=== PATIENT | female | born 1945 | race Caucasian/White ===

== ENCOUNTER 2020-04-01 11:56 | Inpatient (IN) | payer OTHER ==
[2020-04-01 13:35] LABS: INR 1.14 (0.9-1.2); PROTHROMBIN TIME 13.9 SECONDS (11.4-13.6); PTT 28.6 SECONDS (22.2-34.7)
[2020-04-01 13:38] LABS: ALBUMIN 2.6 g/dL (3.4-5.0); BILIRUBIN - TOTAL 0.3 mg/dL (0.2-1.0); BUN/CREAT RATIO (CALC) 22.6 RATIO; C-REACTIVE PROTEIN 3.9 mg/dL (<=0.90); CREATININE 1.06 mg/dL (0.51-0.95); GLOBULIN (CALCULATION) 3.9 g/dL; MAGNESIUM 2.4 mg/dL (1.8-2.4); POTASSIUM 3.8 mmol/L (3.5-5.1); TOTAL PROTEIN 6.5 g/dL (6.4-8.2)
[2020-04-01 13:40] LABS: BASOPHIL 0.5 % (0-2); EOSINOPHIL 0 % (0-7); HCT 37.3 % (37.0-47.0); HGB 12.1 g/dl (12.5-16.0); LYMPHOCYTE 27.7 % (15-48); MCH 30.6 pg (25.0-31.0); MCHC 32.4 g/dL (32.0-36.0); MCV 94.4 fL (78.0-100.0); MONOCYTE 12.3 % (0-12); MPV 10.8 fL (6.0-9.5); NEUTROPHIL 58.4 % (41-80); NRBC 0; RBC 3.95 M/uL (4.20-5.40); RDW 14.1 % (11.5-14.0); WBC 3.8 K/uL (4.0-10.5)
[2020-04-01 13:41] LABS: IRON % SATURATION 11.7 %SAT (20-50)
[2020-04-01 13:49] LABS: PRO-BNP 571 pg/mL (<125)
[2020-04-01 13:56] LABS: PLT 87 K/uL (150-400)
[2020-04-01 13:58] LABS: LACTIC ACID 1.2 mmol/L (0.4-1.9)
[2020-04-01 14:41] LABS: BILIRUBIN NEGATIVE (NEGATIVE); BLOOD TRACE-INTACT Ery/uL (NEGATIVE); CLARITY HAZY (CLEAR); COLOR YELLOW (YELLOW); GLUCOSE (U) NORMAL (NORMAL); LEUKOCYTES TRACE Leu/uL (NEGATIVE); NITRITE POSITIVE (NEGATIVE); PROTEIN TRACE (LOW) mg/dL (NEGATIVE); SPECIFIC GRAVITY 1.025 (1.001-1.030)
[2020-04-01 14:49] LABS: BACTERIA 4+; URINARY RBC RARE
[2020-04-02] MEDS ORDERED: DEPAKOTE250 MG PO ×2 (00:08→00:09)
[2020-04-02] MEDS ORDERED: ZOLOFT50 MG PO (00:09)
[2020-04-02] MEDS ORDERED: SEROQUEL 25MG T25 MG PO (00:10)
[2020-04-02] MEDS ORDERED: ASPIRIN81 MG PO (00:11)
[2020-04-02] MEDS ORDERED: FOSAMAX70 MG PO (00:11)
[2020-04-02] MEDS ORDERED: ARICEPT 5MG TABL5 MG PO (00:12)
[2020-04-02] MEDS ORDERED: LASIX20 MG PO (00:14)
[2020-04-02] MEDS ORDERED: PEPCID AC20 MG PO (00:14)
[2020-04-02] MEDS ORDERED: PRINIVIL20 MG PO (00:15)
[2020-04-02] MEDS ORDERED: NAMENDA 10MG TA10 MG PO (00:15)
[2020-04-02] MEDS ORDERED: PRAVACHOL20 MG PO (00:15)
[2020-04-02] MEDS ORDERED: SODIUM CHLORIDE1 GM PO (00:16)
[2020-04-02 06:12] LABS: BASOPHIL 0.3 % (0-2); EOSINOPHIL 0 % (0-7); HCT 34.4 % (37.0-47.0); HGB 11.2 g/dl (12.5-16.0); MCH 30.6 pg (25.0-31.0); MCHC 32.6 g/dL (32.0-36.0); MONOCYTE 3.7 % (0-12); MPV 10.7 fL (6.0-9.5); NRBC 0; PLT 87 K/uL (150-400); RBC 3.66 M/uL (4.20-5.40); WBC 3.6 K/uL (4.0-10.5)
[2020-04-02 06:22] LABS: LYMPHOCYTE 16.6 % (15-48)
[2020-04-02 07:59] LABS: CREATININE 0.93 mg/dL (0.51-0.95); MAGNESIUM 2.4 mg/dL (1.8-2.4); PHOSPHORUS 3.3 mg/dL (2.6-4.7); POTASSIUM 3.8 mmol/L (3.5-5.1)
[2020-04-02 08:29] LABS: C-REACTIVE PROTEIN 6.5 mg/dL (<=0.90)
--- NOTE | 2020-04-02 09:46 | NUR ---
HR IN 30'S-MD NOTIFIED. DR ARROYO CONSULTED. EKG ORDERED
--- NOTE | 2020-04-02 10:11 | NUR ---
CARDIOLOGY IN TO SEE PATIENT. PT BEING TRANSFERRED TO TCU BED 8. FAMILY NOTIFIED
[2020-04-02 17:26] LABS: BILIRUBIN NEGATIVE (NEGATIVE); BLOOD 1+ Ery/uL (NEGATIVE); CLARITY CLEAR (CLEAR); COLOR YELLOW (YELLOW); GLUCOSE (U) NORMAL (NORMAL); LEUKOCYTES 1+ Leu/uL (NEGATIVE); NITRITE POSITIVE (NEGATIVE); PROTEIN TRACE (LOW) mg/dL (NEGATIVE); SPECIFIC GRAVITY 1.025 (1.001-1.030)
[2020-04-02 17:37] LABS: URINARY WBC TNTC
[2020-04-02 17:38] LABS: BACTERIA 2+
[2020-04-03 05:00] LABS: BASOPHIL 0 % (0-2); EOSINOPHIL 0 % (0-7); HCT 39.2 % (37.0-47.0); HGB 13.1 g/dl (12.5-16.0); LYMPHOCYTE 12.4 % (15-48); MCH 30.3 pg (25.0-31.0); MCHC 33.4 g/dL (32.0-36.0); MCV 90.7 fL (78.0-100.0); MPV 10.4 fL (6.0-9.5); NEUTROPHIL 81.4 % (41-80); NRBC 0; RBC 4.32 M/uL (4.20-5.40); RDW 13.3 % (11.5-14.0)
[2020-04-03 05:02] LABS: PLT 110 K/uL (150-400); WBC 5.8 K/uL (4.0-10.5)
[2020-04-03 05:12] LABS: BUN/CREAT RATIO (CALC) 34.1 RATIO; CREATININE 0.88 mg/dL (0.51-0.95); MAGNESIUM 2.4 mg/dL (1.8-2.4); PHOSPHORUS 2.9 mg/dL (2.6-4.7); POTASSIUM 3.3 mmol/L (3.5-5.1)
--- NOTE | 2020-04-03 13:30 | NUR ---
04/03 Ms. Muir was admitted from Assisted [facility]. Tamara, [facility], reports plans to accept back. Tamara reports pt to have been independent with mobility and ADLs. She is followed by [facility].
--- NOTE | 2020-04-04 18:05 | NUR ---
04/04 Dr. Warner reports patient to [facility] for discharge to [facility]. PT recommended a rw and HH. Referrals were made to [facility] for a rw and VNA, per daughter, Ned Matthews, choice; affliations explained. - [facility] reports to be unable to transport patient. [facility] will not transport pts positve with COVID. [facility] reports to be out of the service area for patients traveling within [facility]. - Ned Matthews, daughter, , states she cannot be exposed to COVID and therefore will not transport. Dr. Warner reports patient is not safe to travel alone in a cab due to COVID. - A message has been left for Eric Bearden, , Executuve Officer at [facility].
[2020-04-05 06:13] LABS: BASOPHIL 0.9 % (0-2); EOSINOPHIL 0 % (0-7); HCT 35.7 % (37.0-47.0); HGB 11.7 g/dl (12.5-16.0); LYMPHOCYTE 28.2 % (15-48); MCH 30.5 pg (25.0-31.0); MCHC 32.8 g/dL (32.0-36.0); MONOCYTE 9.1 % (0-12); NEUTROPHIL 60.3 % (41-80); NRBC 0; RBC 3.84 M/uL (4.20-5.40); RDW 13.9 % (11.5-14.0); WBC 5.8 K/uL (4.0-10.5)
[2020-04-05 06:26] LABS: BUN/CREAT RATIO (CALC) 32.1 RATIO; CREATININE 0.78 mg/dL (0.51-0.95); MAGNESIUM 2.2 mg/dL (1.8-2.4)
[2020-04-05 06:38] LABS: PLT 143 K/uL (150-400)
[2020-04-05] MEDS ORDERED: DEXAMETHASONE 2M2 MG PO (10:30)
== END 2020-04-05 11:05 | disposition home health service (06) | DRG 871 ==
LOC: FER 11:56 → FMS 15:40 → FTCU 04-02 10:07
PROVIDERS: Emergency Medicine; ADMIT Internal Medicine
PROC: 8E0ZXY6 Isolation (ICD-10-PCS; principal; 2020-04-01)
PROC: XW033E5 Introduction of Remdesivir Anti-infective into Peripheral Vein, Percutaneous Approach, New Technology Group 5 (ICD-10-PCS; 2020-04-01)
PROC: 3E0333Z Introduction of Anti-inflammatory into Peripheral Vein, Percutaneous Approach (ICD-10-PCS; 2020-04-01)
DX: A41.89 Other specified sepsis (principal); U07.1 COVID-19; J12.82 Pneumonia due to coronavirus disease 2019; J15.9 Unspecified bacterial pneumonia; J96.01 Acute respiratory failure with hypoxia; G93.41 Metabolic encephalopathy; N17.9 Acute kidney failure, unspecified; N30.00 Acute cystitis without hematuria; I48.20 Chronic atrial fibrillation, unspecified; G30.9 Alzheimer's disease, unspecified; R65.20 Severe sepsis without septic shock; F02.80 Dementia in other diseases classified elsewhere, unspecified severity, without behavioral disturbance, psychotic disturbance, mood disturbance, and anxiety; I10 Essential (primary) hypertension; Y95 Nosocomial condition; R53.83 Other fatigue; K21.9 Gastro-esophageal reflux disease without esophagitis; E78.5 Hyperlipidemia, unspecified; I49.5 Sick sinus syndrome; E87.6 Hypokalemia; E87.70 Fluid overload, unspecified; Z86.73 Personal history of transient ischemic attack (TIA), and cerebral infarction without residual deficits; Z88.2 Allergy status to sulfonamides
CPT/HCPCS: 36415; 36600; 71045; 71250; 80048; 80053; 81001; 82550; 82803; 83540; 83550; 83605; 83615; 83735; 83880; 84100; 84145; 84484; 85025; 85610; 85730; 86140; 87040; 87088; 93005; 97116; 97162; 97166; 97530-GP; 97535; C9113; C9399; J1100; J1630; J1650; J2543; J3370; J7050; J8540; U0002

== ENCOUNTER 2021-01-01 17:38 | Inpatient (IN) | payer OTHER ==
[~2021-01-01] VITALS: Ht 162.6 cm; Wt 75.0 kg
[~2021-01-01 17:38] MED LIST: ARICEPT 5MG TABL5 MG PO; ASPIRIN81 MG PO; DEPAKOTE250 MG PO; DEXAMETHASONE 2M2 MG PO; FOSAMAX70 MG PO; LASIX20 MG PO; NAMENDA 10MG TA10 MG PO; PEPCID AC20 MG PO; PRAVACHOL20 MG PO; PRINIVIL20 MG PO; SEROQUEL 25MG T25 MG PO; SODIUM CHLORIDE1 GM PO; ZOLOFT50 MG PO
[2021-01-01 20:45] LABS: BASOPHIL 0.2 % (0-2); EOSINOPHIL 0 % (0-7); HCT 37.6 % (37.0-47.0); HGB 12.3 g/dl (12.5-16.0); LYMPHOCYTE 5.9 % (15-48); MCH 31.1 pg (25.0-31.0); MCHC 32.7 g/dL (32.0-36.0); MCV 94.9 fL (78.0-100.0); MONOCYTE 6.4 % (0-12); MPV 10.5 fL (6.0-9.5); NRBC 0; RBC 3.96 M/uL (4.20-5.40); RDW 13.6 % (11.5-14.0); WBC 8.9 K/uL (4.0-10.5)
[2021-01-01 20:46] LABS: PLT 91 K/uL (150-400)
[2021-01-01 22:29] LABS: BILIRUBIN NEGATIVE (NEGATIVE); BLOOD 2+ Ery/uL (NEGATIVE); COLOR YELLOW (YELLOW); GLUCOSE (U) NORMAL (NORMAL); LEUKOCYTES TRACE Leu/uL (NEGATIVE); NITRITE POSITIVE (NEGATIVE); PROTEIN TRACE (LOW) mg/dL (NEGATIVE); SPECIFIC GRAVITY 1.025 (1.001-1.030)
[2021-01-01 22:29] LABS: ALBUMIN 2.8 g/dL (3.4-5.0); BILIRUBIN - TOTAL 0.3 mg/dL (0.2-1.0); CREATININE 1.03 mg/dL (0.51-0.95); GLOBULIN (CALCULATION) 4.1 g/dL; POTASSIUM 3.7 mmol/L (3.5-5.1); TOTAL PROTEIN 6.9 g/dL (6.4-8.2)
[2021-01-01 22:34] LABS: CLARITY HAZY (CLEAR)
[2021-01-01 22:35] LABS: URINARY WBC 20-50
[2021-01-01 22:36] LABS: BACTERIA 4+; SQUAMOUS EPITHELIAL CELLS RARE
[2021-01-01 22:54] LABS: CORONAVIRUS 2019 SARS-COV-2 NEGATIVE (NEGATIVE); INFLUENZA A NAA NEGATIVE (NEGATIVE)
[2021-01-02] MEDS ORDERED: DEPAKOTE SPRIN125 M2 PO (01:31)
[2021-01-02 06:52] LABS: BASOPHIL 0.3 % (0-2); EOSINOPHIL 2.9 % (0-7); HCT 36.5 % (37.0-47.0); HGB 10.9 g/dl (12.5-16.0); LYMPHOCYTE 11.1 % (15-48); MCH 30.6 pg (25.0-31.0); MCHC 29.9 g/dL (32.0-36.0); MONOCYTE 8.3 % (0-12); MPV 9.7 fL (6.0-9.5); NEUTROPHIL 76.7 % (41-80); NRBC 0; RBC 3.56 M/uL (4.20-5.40); RDW 13.4 % (11.5-14.0); WBC 5.8 K/uL (4.0-10.5)
[2021-01-02 07:03] LABS: MCV 102.5 fL (78.0-100.0); PLT 63 K/uL (150-400)
[2021-01-02 07:22] LABS: ALBUMIN 2.4 g/dL (3.4-5.0); BILIRUBIN - TOTAL 0.3 mg/dL (0.2-1.0); GLOBULIN (CALCULATION) 3.5 g/dL; TOTAL PROTEIN 5.9 g/dL (6.4-8.2)
[2021-01-03 06:43] LABS: BASOPHIL 0.5 % (0-2); EOSINOPHIL 0 % (0-7); HCT 30.6 % (37.0-47.0); HGB 10.2 g/dl (12.5-16.0); LYMPHOCYTE 16.1 % (15-48); MCH 30.6 pg (25.0-31.0); MCHC 33.3 g/dL (32.0-36.0); MONOCYTE 11.2 % (0-12); MPV 9.7 fL (6.0-9.5); NEUTROPHIL 71.5 % (41-80); NRBC 0; PLT 75 K/uL (150-400); RBC 3.33 M/uL (4.20-5.40); RDW 13.2 % (11.5-14.0); WBC 4.1 K/uL (4.0-10.5)
[2021-01-03 06:58] LABS: CREATININE 0.88 mg/dL (0.51-0.95); DEPAKENE/VALPROIC ACID 25.4 ug/mL (50.0-100.0); POTASSIUM 3.5 mmol/L (3.5-5.1)
[2021-01-03 07:05] LABS: MCV 91.9 fL (78.0-100.0)
--- NOTE | 2021-01-03 14:31 | NUR ---
01/03/21 Ms. Muir was admitted from Assisted Living. She has a rw and is followed by [facility]. Her daughter, Ned Matthews, wishes for Ms. Muir to return to . - Jacqueline Babin, caregiver at , reports that patient may return.
[2021-01-05 06:10] LABS: BASOPHIL 0.4 % (0-2); EOSINOPHIL 0 % (0-7); HCT 30.6 % (37.0-47.0); HGB 10.1 g/dl (12.5-16.0); LYMPHOCYTE 28.9 % (15-48); MCH 30.6 pg (25.0-31.0); MCV 92.7 fL (78.0-100.0); MPV 9.9 fL (6.0-9.5); NEUTROPHIL 57.3 % (41-80); NRBC 0; RDW 13.3 % (11.5-14.0); WBC 4.9 K/uL (4.0-10.5)
[2021-01-05 06:17] LABS: PLT 91 K/uL (150-400)
[2021-01-05 06:33] LABS: BUN/CREAT RATIO (CALC) 32.5 RATIO; CREATININE 0.77 mg/dL (0.51-0.95); POTASSIUM 3.5 mmol/L (3.5-5.1)
[2021-01-05] MEDS ORDERED: LEVAQUIN500 MG PO (08:08)
== END 2021-01-05 13:00 | disposition home or self-care (01) | DRG 689 ==
LOC: FER 17:38 → FMS 23:24
PROVIDERS: Internal Medicine; Nurse Practitioner; ADMIT Internal Medicine
DX: N30.01 Acute cystitis with hematuria (principal); G93.41 Metabolic encephalopathy; R78.81 Bacteremia; F02.81 Dementia in other diseases classified elsewhere, unspecified severity, with behavioral disturbance; B96.20 Unspecified Escherichia coli [E. coli] as the cause of diseases classified elsewhere; Z20.822 Contact with and (suspected) exposure to COVID-19; G30.9 Alzheimer's disease, unspecified; I10 Essential (primary) hypertension; K21.9 Gastro-esophageal reflux disease without esophagitis; E78.00 Pure hypercholesterolemia, unspecified; Z88.2 Allergy status to sulfonamides; Z86.73 Personal history of transient ischemic attack (TIA), and cerebral infarction without residual deficits; Z79.899 Other long term (current) drug therapy
CPT/HCPCS: 36415; 70450; 71250; 80048; 80053; 80164; 81001; 83605; 83735; 83880; 84145; 85025; 87040; 87076; 87077; 87088; 87186; J0692; J0696; J1650; J2543; J3370; J3480; J7030; J7050; U0002